=== PATIENT | female | born 1965 | race Caucasian/White ===

== ENCOUNTER → 2018-02-01 | Outpatient (CLI) | payer BC ==
[~2018-02-01] MED LIST: ADVIL100 MG; ALBU90OI INH; ALBU90OI6 INH; Advil200 M1; CEPH500 PO; CODACE30 PO; COMBIVENT RESPIM4 GM INH; FLUSAL2505 INH; FLUSAL5005 INH; FURO20; HYDACE5 PO; IBUP800 PO; Lisinopril2.5 MG; METF500; PCCA T4 SODIUM D1 GM; PENVK500 PO; POTASSIUM CHLORIDE; Prednisone20 MG PO; Zithromax250 MG PO
== END ==
LOC: LAB 15:30 → LAB SHORT 15:30
DX: E11.9 Type 2 diabetes mellitus without complications (principal)
CPT/HCPCS: 82043

== ENCOUNTER → 2018-06-27 | Outpatient (CLI) | payer BC | END | disposition home or self-care (01) | LOC: LAB SHORT 07:34 → PLD 07:34 | DX: L72.0 Epidermal cyst (principal); L72.3 Sebaceous cyst | CPT/HCPCS: 88304 ==

== ENCOUNTER → 2020-04-09 | Outpatient (CLI) | payer BC | LOC: OLS 14:20 → LAB SHORT 14:20 → LAB FUT 08-11 14:05 | DX: E03.9 Hypothyroidism, unspecified (principal) | CPT/HCPCS: 36415; 84439 ==